=== PATIENT | male | born 1980 | race Caucasian/White ===

== ENCOUNTER 2019-08-03 15:27 | Emergency (ER) | payer SELFPAY ==
[~2019-08-03] VITALS: Ht 185.4 cm; Wt 176.9 kg
[~2019-08-03 15:27] MED LIST: DAYPRO600 M1 PO; ULTRAM50 MG PO; VICODIN 500 MG-1 TAB PO
== END 2019-08-03 16:09 | disposition home or self-care (01) ==
LOC: ED 15:27
DX: S05.01XA Injury of conjunctiva and corneal abrasion without foreign body, right eye, initial encounter (principal); Z91.040 Latex allergy status; X58.XXXA Exposure to other specified factors, initial encounter; Y93.89 Activity, other specified; Y92.89 Other specified places as the place of occurrence of the external cause; Y99.8 Other external cause status

== ENCOUNTER → 2020-10-10 | Outpatient (CLI) | payer OTHER | END | disposition home or self-care (01) | LOC: RAD 14:25 | PROVIDERS: ATTEND Family Medicine | DX: M25.521 Pain in right elbow (principal) ==

== ENCOUNTER → 2023-04-26 | Outpatient (CLI) | payer BC ==
[2023-04-26 13:22] LABS: BASO % 0.4 % (0.0-1.0); EOS # 0.1 10*3/uL (0.0-0.4); EOS % 1.8 % (1.0-4.0); LYMPH # 1.6 10*3/uL (1.3-4.4); LYMPH % 21.6 % (27.0-41.0); MEAN CELL VOLUME 88.7 fl (80.0-94.0); MEAN CORPUSCULAR HGB 30.3 pg (27.0-31.0); MEAN CORPUSCULAR HGB CONC 34.2 g/dl (33.0-37.0); MEAN PLATELET VOLUME 9.9 fl (9.6-12.3); MONO # 0.5 10*3/uL (0.1-1.0); MONO % 6.2 % (3.0-9.0); NEUT # 5.1 10*3/uL (2.3-7.9); NEUT % 69.7 % (47.0-73.0); PLATELET COUNT AUTOMATED 183 10*3/uL (130-400); RED BLOOD COUNT 4.85 10*6/uL (4.50-5.90); RED CELL DISTRI WIDTH 12.4 % (0-14.5); RETICULOCYTE % 1.96 % (0.50-2.50); WHITE BLOOD COUNT 7.4 10*3/uL (4.8-10.8)
[2023-04-26 13:46] LABS: ALKALINE PHOSPHATASE 61 U/L (46-116); BUN 9 mg/dl (9-23); CHLORIDE 102 mmol/L (98-107); CHOLESTEROL 119 mg/dL (<200); GAMMA GLUTAMYL TRANSPEPTIDASE 77 U/L (0-73); LDL CHOLESTEROL 48 mg/dL (9-159); POTASSIUM 4.2 mmol/L (3.4-5.1); SGPT/ALT 48 U/L (10-49); T3 UPTAKE 30.6 % (22.4-36.7); THYROID STIM HORMONE (HS) 3.325 uIU/ml (0.550-4.780); THYROXINE (T4) TOTAL 6.4 ug/dl (4.5-10.9); TRIGLYCERIDES 109 mg/dl (<150)
[2023-04-26 13:47] LABS: VITAMIN D, 25-HYDROXY 30.1 ng/mL (30-100)
== END | disposition home or self-care (01) ==
LOC: LAB 12:23
PROVIDERS: ATTEND Family Medicine
DX: R91.1 Solitary pulmonary nodule (principal); R79.89 Other specified abnormal findings of blood chemistry; R53.83 Other fatigue; E11.9 Type 2 diabetes mellitus without complications; E55.9 Vitamin D deficiency, unspecified; R06.02 Shortness of breath

== ENCOUNTER 2023-05-16 17:47 | Inpatient (IN) | payer BC ==
[~2023-05-16] VITALS: Ht 185.4 cm; Wt 169.2 kg
[2023-05-16] VITALS (7 sets, daily range): BP systolic 165–193; BP diastolic 80–126
[2023-05-16 18:37] LABS: BASO % 0.4 % (0.0-1.0); EOS # 0.1 10*3/uL (0.0-0.4); EOS % 1.4 % (1.0-4.0); HEMATOCRIT 42.5 % (42.0-52.0); LYMPH # 1.7 10*3/uL (1.3-4.4); LYMPH % 23.4 % (27.0-41.0); MEAN CELL VOLUME 88.7 fl (80.0-94.0); MEAN CORPUSCULAR HGB 29.4 pg (27.0-31.0); MEAN CORPUSCULAR HGB CONC 33.2 g/dl (33.0-37.0); MEAN PLATELET VOLUME 10.1 fl (9.6-12.3); MONO # 0.4 10*3/uL (0.1-1.0); MONO % 5.9 % (3.0-9.0); NEUT # 4.9 10*3/uL (2.3-7.9); NEUT % 68.6 % (47.0-73.0); PLATELET COUNT AUTOMATED 210 10*3/uL (130-400); RED BLOOD COUNT 4.79 10*6/uL (4.50-5.90); RED CELL DISTRI WIDTH 12.4 % (0-14.5); WHITE BLOOD COUNT 7.1 10*3/uL (4.8-10.8)
[2023-05-16 19:02] LABS: ACT PARTIAL THROMBO TIME 26.4 SECONDS (20.0-32.1); INTERNATIONAL NORM RATIO 1.1 (2.0-3.5)
[2023-05-16 19:16] LABS: ALKALINE PHOSPHATASE 81 U/L (46-116); BUN 14 mg/dl (9-23); CHLORIDE 104 mmol/L (98-107); LIPASE 37 U/L (12-53); POTASSIUM 4.1 mmol/L (3.4-5.1); SGPT/ALT 46 U/L (10-49); TOTAL PROTEIN 6.6 gm/dL (6.0-8.0)
[2023-05-16] MEDS ORDERED: GLYBURIDE5 MG PO (21:47)
[2023-05-16] MEDS ORDERED: Lopressor25 MG PO (21:48)
[2023-05-16] MEDS ORDERED: LOSARTAN POTASS25 M1 PO (21:48)
[2023-05-16] MEDS ORDERED: METFORMIN HYDR500 MG PO (21:49)
[2023-05-16] MEDS ORDERED: SENNA8.6 MG PO (21:49)
[2023-05-16] MEDS ORDERED: ATORVASTATIN CA20 M1 PO (21:50)
[2023-05-16] MEDS ORDERED: TRULICITY1.5 MG/0.5 SC (21:51)
[2023-05-16] MEDS ORDERED: LACTULOSE10 GM/151 PO (21:55)
[2023-05-16] MEDS ORDERED: LINZESS290 MC1 PO (22:07)
[2023-05-17] VITALS (9 sets, daily range): BP systolic 142–162; BP diastolic 88–115
[2023-05-17 06:20] LABS: BASO % 0.4 % (0.0-1.0); EOS # 0.1 10*3/uL (0.0-0.4); EOS % 1.9 % (1.0-4.0); LYMPH # 2.1 10*3/uL (1.3-4.4); LYMPH % 27.9 % (27.0-41.0); MEAN CELL VOLUME 89.6 fl (80.0-94.0); MEAN CORPUSCULAR HGB 30.3 pg (27.0-31.0); MEAN CORPUSCULAR HGB CONC 33.8 g/dl (33.0-37.0); MEAN PLATELET VOLUME 9.8 fl (9.6-12.3); MONO # 0.5 10*3/uL (0.1-1.0); MONO % 6.8 % (3.0-9.0); NEUT # 4.7 10*3/uL (2.3-7.9); NEUT % 62.6 % (47.0-73.0); PLATELET COUNT AUTOMATED 190 10*3/uL (130-400); RED BLOOD COUNT 4.69 10*6/uL (4.50-5.90); RED CELL DISTRI WIDTH 12.7 % (0-14.5); WHITE BLOOD COUNT 7.6 10*3/uL (4.8-10.8)
[2023-05-17 06:50] LABS: ALKALINE PHOSPHATASE 78 U/L (46-116); BUN 11 mg/dl (9-23); CHLORIDE 102 mmol/L (98-107); POTASSIUM 3.3 mmol/L (3.4-5.1); SGPT/ALT 44 U/L (10-49); TOTAL PROTEIN 6.7 gm/dL (6.0-8.0)
[2023-05-18] VITALS: BP 153/84
[2023-05-18 06:12] LABS: BASO % 0.5 % (0.0-1.0); EOS # 0.1 10*3/uL (0.0-0.4); EOS % 1.9 % (1.0-4.0); HEMATOCRIT 41.7 % (42.0-52.0); LYMPH # 1.8 10*3/uL (1.3-4.4); LYMPH % 28.5 % (27.0-41.0); MEAN CELL VOLUME 89.3 fl (80.0-94.0); MEAN CORPUSCULAR HGB 29.6 pg (27.0-31.0); MEAN CORPUSCULAR HGB CONC 33.1 g/dl (33.0-37.0); MEAN PLATELET VOLUME 10.1 fl (9.6-12.3); MONO # 0.5 10*3/uL (0.1-1.0); MONO % 7.3 % (3.0-9.0); NEUT # 3.8 10*3/uL (2.3-7.9); NEUT % 61.6 % (47.0-73.0); PLATELET COUNT AUTOMATED 192 10*3/uL (130-400); RED BLOOD COUNT 4.67 10*6/uL (4.50-5.90); RED CELL DISTRI WIDTH 12.5 % (0-14.5); WHITE BLOOD COUNT 6.2 10*3/uL (4.8-10.8)
[2023-05-18 06:34] LABS: BUN 9 mg/dl (9-23); CHLORIDE 103 mmol/L (98-107); POTASSIUM 3.8 mmol/L (3.4-5.1)
[2023-05-18 08:00] VITALS: BP 152/100
[2023-05-18 12:00] VITALS: BP 151/100
[2023-05-18 16:00] VITALS: BP 140/93
[2023-05-18 20:00] VITALS: BP 155/115
[2023-05-19] VITALS (11 sets, daily range): BP systolic 125–166; BP diastolic 63–110
[2023-05-19 06:17] LABS: BASO % 0.4 % (0.0-1.0); EOS # 0.1 10*3/uL (0.0-0.4); EOS % 1.7 % (1.0-4.0); HEMATOCRIT 41.9 % (42.0-52.0); LYMPH # 1.9 10*3/uL (1.3-4.4); LYMPH % 27.2 % (27.0-41.0); MEAN CELL VOLUME 90.5 fl (80.0-94.0); MEAN CORPUSCULAR HGB CONC 33.2 g/dl (33.0-37.0); MEAN PLATELET VOLUME 10.2 fl (9.6-12.3); MONO # 0.6 10*3/uL (0.1-1.0); NEUT # 4.3 10*3/uL (2.3-7.9); NEUT % 62.4 % (47.0-73.0); PLATELET COUNT AUTOMATED 197 10*3/uL (130-400); RED BLOOD COUNT 4.63 10*6/uL (4.50-5.90); RED CELL DISTRI WIDTH 12.5 % (0-14.5); WHITE BLOOD COUNT 6.9 10*3/uL (4.8-10.8)
[2023-05-19 06:28] LABS: BUN 13 mg/dl (9-23); CHLORIDE 103 mmol/L (98-107); POTASSIUM 3.7 mmol/L (3.4-5.1)
[2023-05-20] VITALS (12 sets, daily range): BP systolic 107–139; BP diastolic 74–99
[2023-05-20 05:56] LABS: BASO % 0.2 % (0.0-1.0); EOS # 0.1 10*3/uL (0.0-0.4); EOS % 1.5 % (1.0-4.0); HEMATOCRIT 43.2 % (42.0-52.0); LYMPH % 21.9 % (27.0-41.0); MEAN CELL VOLUME 88.3 fl (80.0-94.0); MEAN CORPUSCULAR HGB 29.4 pg (27.0-31.0); MEAN CORPUSCULAR HGB CONC 33.3 g/dl (33.0-37.0); MONO # 0.7 10*3/uL (0.1-1.0); MONO % 7.7 % (3.0-9.0); NEUT # 6.3 10*3/uL (2.3-7.9); NEUT % 68.5 % (47.0-73.0); PLATELET COUNT AUTOMATED 213 10*3/uL (130-400); RED BLOOD COUNT 4.89 10*6/uL (4.50-5.90); RED CELL DISTRI WIDTH 12.3 % (0-14.5); WHITE BLOOD COUNT 9.2 10*3/uL (4.8-10.8)
[2023-05-20 06:17] LABS: BUN 17 mg/dl (9-23); CHLORIDE 98 mmol/L (98-107); POTASSIUM 3.6 mmol/L (3.4-5.1)
[2023-05-20] MEDS ORDERED: POTASSIUM CHLO10 ME4 PO (14:35)
[2023-05-20] MEDS ORDERED: AMIODARONE HYD200 MG PO (14:35)
[2023-05-20] MEDS ORDERED: ELIQUIS5 M1 PO ×2 (14:35)
[2023-05-20] MEDS ORDERED: TORSEMIDE20 MG PO (14:35)
[2023-05-20] MEDS ORDERED: AMIODARONE HCL400 MG PO (14:35)
[2023-05-20] MEDS ORDERED: JARDIANCE10 MG PO ×3 (14:35→15:48)
[2023-05-20] MEDS ORDERED: METOPROLOL SUCC50 M1 PO (14:35)
[2023-05-20] MEDS ORDERED: XARELTO20 M1 PO (15:48)
== END 2023-05-20 18:22 | disposition home or self-care (01) | DRG 291 ==
LOC: ED 17:47 → EDHOLD 20:47 → 4E 20:47 → ICCU 05-19 14:25 → 4E 05-19 14:25 → ICCU 05-20 18:22
PROVIDERS: Emergency Medicine; Internal Medicine; ADMIT Internal Medicine; ATTEND Internal Medicine
PROC: B24BZZ4 Ultrasonography of Heart with Aorta, Transesophageal (ICD-10-PCS; principal; 2023-05-19)
PROC: 5A2204Z Restoration of Cardiac Rhythm, Single (ICD-10-PCS; 2023-05-19)
PROC: 5A2204Z Restoration of Cardiac Rhythm, Single (ICD-10-PCS; 2023-05-20)
DX: I11.0 Hypertensive heart disease with heart failure (principal); I26.99 Other pulmonary embolism without acute cor pulmonale; I50.21 Acute systolic (congestive) heart failure; E87.1 Hypo-osmolality and hyponatremia; I16.1 Hypertensive emergency; I48.92 Unspecified atrial flutter; E66.01 Morbid (severe) obesity due to excess calories; K59.00 Constipation, unspecified; E78.5 Hyperlipidemia, unspecified; E11.65 Type 2 diabetes mellitus with hyperglycemia; I50.810 Right heart failure, unspecified; I48.0 Paroxysmal atrial fibrillation; Z83.3 Family history of diabetes mellitus; Z82.49 Family history of ischemic heart disease and other diseases of the circulatory system; Z79.899 Other long term (current) drug therapy; Z79.84 Long term (current) use of oral hypoglycemic drugs

== ENCOUNTER → 2023-08-15 | Outpatient (CLI) | payer BC ==
[~2023-08-15] MED LIST changes: +AMIODARONE HCL400 MG PO; +AMIODARONE HYD200 MG PO; +ATORVASTATIN CA20 M1 PO; +ELIQUIS5 M1 PO; +GLYBURIDE5 MG PO; +JARDIANCE10 MG PO; +LACTULOSE10 GM/151 PO; +LINZESS290 MC1 PO; +LOSARTAN POTASS25 M1 PO; +Lopressor25 MG PO; +METFORMIN HYDR500 MG PO; +METOPROLOL SUCC50 M1 PO; +POTASSIUM CHLO10 ME4 PO; +SENNA8.6 MG PO; +TORSEMIDE20 MG PO; +TRULICITY1.5 MG/0.5 SC; +XARELTO20 M1 PO
== END | disposition home or self-care (01) ==
LOC: CARD 09:32
PROVIDERS: ATTEND Internal Medicine Cardiovascular Disease
DX: R06.09 Other forms of dyspnea (principal)